=== PATIENT | female | born 1980 | race Caucasian/White ===

== ENCOUNTER 2019-07-11 14:19 | Emergency (ER) | payer MEDICAID ==
--- NOTE | 2019-07-11 15:49 | RAD ---
RADIOGRAPH CHEST 2 VIEWS: DATE: 07/11/2019 HISTORY: 39-year-old female status post acute chest trauma from fall FINDINGS: There is no airspace density, pulmonary edema, pleural effusion, pneumothorax, or cardiomegaly. IMPRESSION: No acute cardiopulmonary findings.
--- NOTE | 2019-07-11 15:50 | RAD ---
RADIOGRAPH LEFT FIRST DIGIT 3VIEWS: DATE: 07/11/2019 HISTORY: 39-year-old female with acute traumatic left thumb pain due to fall FINDINGS: There is no dislocation. No fracture is identified. IMPRESSION: No fracture.
== END 2019-07-11 16:00 | disposition home or self-care (01) ==
LOC: BURERS 14:19
DX: S20.212A Contusion of left front wall of thorax, initial encounter (principal); S60.012A Contusion of left thumb without damage to nail, initial encounter; I10 Essential (primary) hypertension; F17.210 Nicotine dependence, cigarettes, uncomplicated; W01.198A Fall on same level from slipping, tripping and stumbling with subsequent striking against other object, initial encounter
CPT/HCPCS: 71046

== ENCOUNTER 2022-04-21 15:37 | Emergency (ER) | payer OTHER ==
[~2022-04-21 15:37] MED LIST: Iopamidol 370 76% 100 ML VIAL ONE
[2022-04-21] MEDS ORDERED: Ondansetron PF 4 MG/2 ML Vial ONE (16:22)
[2022-04-21] MEDS ORDERED: Morphine 4 MG/ML VIAL ONE (16:22)
[2022-04-21 16:42] LABS: #Basophils 0.1 thou/uL (0.0-0.2); #Eosinphils 0.1 thou/uL (0.0-0.7); #Lymphocytes 1.5 thou/uL (1.20-3.40); #Monocytes 0.4 thou/uL (0.11-0.59); #Neutrophils 5.4 thou/uL (1.40-6.50); %Basophils 0.7 % (0.0-1.0); %Eosinophils 0.8 % (0.0-10.0); %Lymphocytes 19.9 % (21.0-51.0); %Monocytes 5.8 % (0.0-10.0); %Neutrophils 72.7 % (42.0-75.0); Hemoglobin 14.9 g/dL (12.0-16.0); Mean Corpuscular HGB CONC 32.4 g/dL (32.0-36.0); Mean Corpuscular Hemoglobin 29.6 pg (27.0-31.0); Mean Corpuscular Volume 91.5 fl (78.0-98.0); Mean Platelet Volume 9.2 fL (7.4-10.4); Platelet Count 222 10x3/uL (130-400); RBC Distribution Width 12.9 % (11.5-14.5); Red Blood Cell (RBC) Count 5.02 mill/uL (4.20-5.40); White Blood Cell (WBC) Count 7.4 10x3/uL (4.8-10.8)
[2022-04-21 16:44] LABS: PTT 24.9 sec (22.9-36.1); Prothrombin Time 13.5 sec (12.0-14.7)
[2022-04-21 16:51] LABS: BHCG - Serum Negative (NEGATIVE); Pregs Control Background? CLEAR/WHITE (CLR/WHITE); Pregs Control Bar Appear? YES (CONTROL BAR)
[2022-04-21 16:54] LABS: ALT (SGPT) 22 U/L (8-55); AST (SGOT) 20 U/L (5-34); Albumin 4.1 g/dL (3.5-5.0); Alcohol Less than 10 mg/dL (Less than 10); Alkaline Phosphatase 65 U/L (40-110); Anion Gap 14 mmol/L (10-20); BUN (Urea Nitrogen) 6 mg/dL (7.0-18.7); Bilirubin, Total 0.5 mg/dL (0.2-1.2); Calc. Creatinine Clearance 0 mL/min (70-130); Calcium 9.2 mg/dL (7.8-10.44); Carbon Dioxide 22 mmol/L (22-29); Chloride 101 mmol/L (98-107); Estimated GFR 111; Globulin 2.8 g/dL (2.4-3.5); Glucose 84 mg/dL (70-105); Lipase 35 U/L (8-78); Potassium 3.7 mmol/L (3.5-5.1); Protein, Total 6.9 g/dL (6.0-8.3); Sodium 133 mmol/L (136-145)
== END 2022-04-21 17:21 | disposition home or self-care (01) ==
LOC: BURERS 15:37
DX: S16.1XXA Strain of muscle, fascia and tendon at neck level, initial encounter (principal); S40.022A Contusion of left upper arm, initial encounter; I10 Essential (primary) hypertension; F17.210 Nicotine dependence, cigarettes, uncomplicated; V89.2XXA Person injured in unspecified motor-vehicle accident, traffic, initial encounter
CPT/HCPCS: 36415; 70450; 71260; 72125; 74177; 80053; 80307; 83690; 84703; 85025; 85610; 85730; 96374; 96375; G0390; J2270; J2405; Q9967